=== PATIENT | female | born 1960 | race Caucasian/White ===

== ENCOUNTER 2020-04-01 06:25 | Outpatient (CLI) | payer OTHER ==
[2020-04-02 03:08] LABS: SARS-CoV-2 MS2 Positive; SARS-CoV-2 N Gene Negative; SARS-CoV-2 S Gene Negative; SARS-CoV-2 by NAA Not Detected (NotDetected); SARS-CoV-2 orf1ab Negative
--- NOTE | 2020-04-02 07:10 | EKG ---
Test Reason : Blood Pressure : / mmHG Vent. Rate : 105 BPM Atrial Rate : 105 BPM P-R Int : 142 ms QRS Dur : 090 ms QT Int : 334 ms P-R-T Axes : 078 043 066 degrees QTc Int : 441 ms Sinus tachycardia with frequent Premature ventricular complexes Septal infarct , age undetermined Abnormal ECG No previous ECGs available Confirmed by DR. Yfn JACOBSON ([id number]) on 04/02/2020 7:10:25 AM Referred By: MARTÍN Confirmed By:DR. Yfn JACOBSON
== END 2020-04-01 06:26 | disposition home or self-care (01) ==
LOC: LABBT 06:25
PROVIDERS: ATTEND Orthopaedic Surgery
DX: Z01.818 Encounter for other preprocedural examination (principal); Z20.828 Contact with and (suspected) exposure to other viral communicable diseases; S52.501A Unspecified fracture of the lower end of right radius, initial encounter for closed fracture
CPT/HCPCS: 87635; 93005; 93010; U0003

== ENCOUNTER 2020-04-06 10:14 | Day surgery (SDC) | payer OTHER ==
[2020-04-06] MEDS ORDERED: Ondansetron PF 4 MG/2 ML Vial ONE (10:40)
[2020-04-06] MEDS ORDERED: Lidocaine 1% PF 5 ML VIAL ONE (10:40)
[2020-04-06] MEDS ORDERED: Ropivacaine 0.5% HCl/PF (150 MG/30 ML VIAL) ONE (10:40)
[2020-04-06] MEDS ORDERED: PROPOFOL 200 MG/20 ML VIAL ONE (10:40)
[2020-04-06] MEDS ORDERED: Dexamethasone 20 MG/5 ML VIAL ONE (10:40)
[2020-04-06] MEDS ORDERED: Ropivacaine 0.2% HCl/PF (40 MG/20 ML VIAL) ONE (10:40)
[2020-04-06] MEDS ORDERED: Fentanyl 100 MCG/2 ML VIAL ONE (11:03)
[2020-04-06] MEDS ORDERED: Midazolam HCl 2 mg/2 ml Vial ONE (11:03)
[2020-04-06] MEDS ORDERED: traMADol HCl 50 MG TAB PO PRN ×2 (11:45)
[2020-04-06] MEDS ORDERED: Zolpidem Tartrate 5 MG TAB PO PRN (11:45)
[2020-04-06] MEDS ORDERED: Promethazine HCl 25 MG/ML VIAL IM PRN (11:45)
[2020-04-06] MEDS ORDERED: Ondansetron PF 4 MG/2 ML Vial IVP PRN (11:45)
[2020-04-06] MEDS ORDERED: HYDROcodone/Acetaminophen 5/325 mg Tablet PO PRN ×2 (11:45)
[2020-04-06] MEDS ORDERED: Ropivacaine 0.2% 550 ML 550 ML NERVE BLCK SCH (11:45)
[2020-04-06] MEDS ORDERED: Ketorolac Tromethamine 30 MG/ML VIAL IVP PRN (11:45)
--- NOTE | 2020-04-06 15:13 | RAD ---
RIGHT WRIST: HISTORY: Intraoperative films. COMPARISON: An 12/15/2019 study. FINDINGS: There is a plate and screws now stabilizing the distal radial fracture. Partial visualization of the ulnar plate and screws is noted. IMPRESSION: Placement of a plate and screws stabilizing distal radial fracture. POS: ELEAZAR
[2020-04-06] MEDS ORDERED: HYDROcodone/Acetaminophen 5/325 mg Tablet ONE (16:44)
--- NOTE | 2020-04-07 11:59 | OP ---
DATE OF PROCEDURE: 04/06/2020 PROCEDURE PERFORMED: Right distal radius osteotomy with bone grafting. PREOPERATIVE DIAGNOSIS: Malunion of right distal radius fracture. POSTOPERATIVE DIAGNOSIS: Malunion of right distal radius fracture. COMPLICATIONS: None. ESTIMATED BLOOD LOSS: Minimal. IMPLANT: Synthes volar distal radial plate with multiple locking and nonlocking screws. INDICATIONS: Ms. Gay is a 59-year-old female, who has fallen and fractured her right distal radius. She elected to pursue with nonoperative treatment initially. She was placed in a cast. Unfortunately, now that she is out of the cast, she has had ongoing pain related to her distal radius fracture. She has shortening of her radius as well as loss of volar tilt. She has malalignment and this is causing her chronic pain. She has been indicated now for osteotomy of the distal radius to restore anatomic alignment and relieve pain. Risks have been reviewed with her. She is at risk for nonunion, malunion, nerve or vascular injury, pain, and others. DESCRIPTION OF PROCEDURE: Ms. Gay was identified in the preoperative holding area. Her correct extremity was marked. She was carried to the operating room. She was positioned supine. General anesthesia was induced. A multidisciplinary time-out was performed. The right upper extremity was prepped and draped in sterile fashion. We began the procedure with a volar approach to the distal radius. We dissected down through the subcutaneous tissues to the FCR tendon. The FCR tendon sheath was opened. This brought us down more deeply in the wrist. We elevated the pronator quadratus from the distal radius. At this point, we clearly could visualize the patient's previous fracture line. The fracture was healed. There was obvious dorsal tilt at the distal radius. We used x-ray to evaluate the alignment and oliver an appropriate position for osteotomy. We then used an oscillating saw to cut the volar aspect of the distal radius. We completed the osteotomy with an osteotome carefully protecting the extensor tendons. At this point, we freed up the soft tissue around the osteotomy. This allowed us to correct the alignment and pull length on the radius, correcting the radial length. We took care to maintain radial inclination as well. Once we had appropriate parameters, we placed a K-wire holding our position. We then applied our volar distal radial plate. This allowed us to rigidly hold the distal radius in its position. We applied multiple locking screws distally and proximally. We took x-ray images confirming this. Finally, we packed cancellous bone chips into the osteotomy site, bone grafting the osteotomy in an impaction type graft. We took final images. We thoroughly irrigated with copious lavage. We then closed with Vicryl suture and nylon suture. A sterile dressing was applied. The patient was taken to the recovery room at this point in good condition. Job ID: [id number]
== END 2020-04-06 17:05 | disposition home or self-care (01) ==
LOC: SDC 10:14
PROVIDERS: ATTEND Orthopaedic Surgery
PROC: 0PSH04Z Reposition Right Radius with Internal Fixation Device, Open Approach (ICD-10-PCS; principal; 2020-04-06)
DX: S52.531P Colles' fracture of right radius, subsequent encounter for closed fracture with malunion (principal); G56.01 Carpal tunnel syndrome, right upper limb; E07.9 Disorder of thyroid, unspecified; I10 Essential (primary) hypertension; F32.9 Major depressive disorder, single episode, unspecified; Z79.899 Other long term (current) drug therapy; W19.XXXD Unspecified fall, subsequent encounter
CPT/HCPCS: 76000; A4306; C1713; J0690; J1100; J2250; J2405; J2704; J2795; J3010